=== PATIENT | female | born 2000 | race Hispanic/Latino ===

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

== ENCOUNTER 2024-09-30 16:38 | Emergency (ER) | payer OTHER ==
[~2024-09-30] VITALS: Ht 162.6 cm; Wt 59.0 kg
[~2024-09-30 16:38] MED LIST changes: -BUPIVACAINE HCL 0.5% INJ 30 ML VIAL INJ ONE; -CEFAZOLIN SOD 1 GM VIAL ONE; +CEFDINIR300 MG PO; -DEXAMETHASONE SOD PHOS INJ 4 MG/ML VIAL ONE; -FENTANYL CITRATE/PF 100MCG/2 ML INJ ONE; -KETOROLAC TROMETHAMINE 30 MG/ML VIAL ONE; -LIDOCAINE HCL 2% LOCAL INJ 5 ML SDV VIAL INJ ONE; -MIDAZOLAM HCL 2 MG/2 ML VIAL ONE; -MUPIROCIN 2% OINT 22 GM TUBE ONE; +NO HOME MEDS; -ONDANSETRON HCL INJ 2 MG/ML VIAL ONE; -PROPOFOL IV EMULSION 10 MG/ML 20 ML VIAL ONE; -SEVOFLURANE INHAL SOLN 250 ML PEN BTL ONE
[2024-09-30 16:45] VITALS: TEMP 97.9
[2024-09-30] MEDS: ACETAMINOPHEN 325 MG TAB PO ONE (18:20)
[2024-09-30] MEDS: TETANUS/DIPHTHERIA TOX ADULT 0.5 ML SYR IM ONE (18:20)
[2024-09-30] MEDS ORDERED: BUPIVACAINE HCL 0.25% 10ML MPF VIAL INJ ONE (19:28)
[2024-09-30 20:00] VITALS: PULSE 73; RESP 17
[2024-09-30] MEDS ORDERED: AMOX TR-K CLV1 EAC2 PO (20:36)
[2024-09-30] MEDS: BUPIVACAINE HCL 0.25% 10ML MPF VIAL INJ ONE (20:45)
[2024-09-30] MEDS: LIDOCAINE 1% W/EPINEPHRINE 20 ML VIAL INJ ONE (20:46)
[2024-09-30] MEDS: BACITRACIN ZINC 0.9GM TP ONE (21:06)
[2024-09-30] MEDS: AMOXICILLIN/CLAVULANATE K 875 MG TAB PO STA (21:06)
[2024-09-30 21:07] VITALS: BP 121/68; PULSE 71; RESP 17; TEMP 98.2; O2SAT 100
== END 2024-09-30 21:09 | disposition home or self-care (01) ==
LOC: ER 16:55
DX: S51.852A Open bite of left forearm, initial encounter (principal); S61.452A Open bite of left hand, initial encounter; W54.0XXA Bitten by dog, initial encounter; Y92.89 Other specified places as the place of occurrence of the external cause
CPT/HCPCS: 90471; 90714; 99284